=== PATIENT | male | born 1970 | race Two or more races ===

== ENCOUNTER 2016-09-23 08:13 | Emergency (ER) | payer SELFPAY ==
[~2016-09-23] VITALS: Ht 167.6 cm; Wt 102.1 kg
[2016-09-23 08:32] VITALS: BP 127/87
[2016-09-23] MEDS ORDERED: KETOROLAC TROMETH 30 MG/ML 1ML VIAL IV ONE (10:30)
[2016-09-23] MEDS ORDERED: cefTRIAXone 1GM/50ML D5W 50 ML IV ONE ×2 (10:30)
== END 2016-09-23 11:27 | disposition home or self-care (01) ==
LOC: EDBD 08:13 → ER 08:15
DX: J34.0 Abscess, furuncle and carbuncle of nose (principal)
CPT/HCPCS: 10060; 87077; 87186; 87205; 96365; 96375; 99284; J0696; J1885